=== PATIENT | female | born 1995 | race Two or more races ===

== ENCOUNTER 2023-09-08 12:05 | Outpatient (CLI) | payer OTHER | END 2023-09-08 12:07 | disposition home or self-care (01) | LOC: PRENATAL 12:05 | PROVIDERS: ATTEND Obstetrics & Gynecology Maternal & Fetal Medicine | DX: O36.80X0 Pregnancy with inconclusive fetal viability, not applicable or unspecified (principal); Z36.82 Encounter for antenatal screening for nuchal translucency; O34.40 Maternal care for other abnormalities of cervix, unspecified trimester; Z3A.11 11 weeks gestation of pregnancy ==

== ENCOUNTER 2023-11-09 09:45 | Outpatient (CLI) | payer OTHER | END 2023-11-09 09:48 | disposition home or self-care (01) | LOC: PRENATAL 09:45 | PROVIDERS: ATTEND Obstetrics & Gynecology Maternal & Fetal Medicine | DX: O35.9XX0 Maternal care for (suspected) fetal abnormality and damage, unspecified, not applicable or unspecified (principal); O35.3XX0 Maternal care for (suspected) damage to fetus from viral disease in mother, not applicable or unspecified; O44.00 Complete placenta previa NOS or without hemorrhage, unspecified trimester; Z3A.20 20 weeks gestation of pregnancy ==

== ENCOUNTER 2024-01-31 09:05 | Outpatient (CLI) | payer OTHER | END 2024-01-31 09:06 | disposition home or self-care (01) | LOC: PRENATAL 09:05 | PROVIDERS: ATTEND Obstetrics & Gynecology Maternal & Fetal Medicine | DX: O26.849 Uterine size-date discrepancy, unspecified trimester (principal); O36.8199 Decreased fetal movements, unspecified trimester, other fetus; Z3A.32 32 weeks gestation of pregnancy ==

== ENCOUNTER 2024-03-17 14:46 | Inpatient (IN) | payer OTHER ==
[~2024-03-17] VITALS: Ht 157.5 cm; Wt 74.8 kg
[2024-03-23] MEDS ORDERED: RINGERS SOLUTION,LACTATED 1,000 ML IV SCH (05:15)
[2024-03-23] MEDS ORDERED: PRENATABS RX T1 EACH PO (05:19)
[2024-03-23 06:17] LABS: HEMATOCRIT 37.1 % (36.0-45.00); HEMOGLOBIN 12.9 g/dL (12.0-15.00); MEAN CELL VOLUME 91.9 fL (80.00-100.00); MEAN CORPUSCULAR HEMOGLOBIN 32.1 pg (27.00-32.0); MEAN CORPUSCULAR HGB CONC 34.9 g/dl (32.0-36.0); PLATELET COUNT 150 K/uL (150-450); RED BLOOD COUNT 4.04 M/uL (4.00-6.00); RED CELL DISTRIBUTION WIDTH 13.4 % (11.5-14.5)
[2024-03-23 06:43] LABS: INR < 0.93; PARTIAL THROMBOPLASTIN TIME 25.4 SECONDS (22.0-34.0); PROTHROMBIN TIME 9.7 SECONDS (9.0-11.5)
[2024-03-23 06:50] LABS: CALCIUM 8.8 mg/dL (8.5-10.1); CREATININE SERUM 0.64 mg/dL (0.55-1.02); GFR 108.96; POTASSIUM 3.93 mEq/L (3.5-5.1)
[2024-03-23] MEDS ORDERED: MISOPROSTOL 25 MCG/4 ML GEL.W.APPL VAG SCH (08:30)
[2024-03-23] MEDS ORDERED: OXYTOCIN 20 UNITS/500ML RL PIGGYBAG IV ONE (13:19)
[2024-03-23] MEDS ORDERED: OXYTOCIN 500 ML IV ONE (13:45)
[2024-03-23] MEDS ORDERED: PROMETHAZINE HCL 25 MG/ML AMPUL ONE (16:55)
[2024-03-23] MEDS ORDERED: MEPERIDINE HCL/PF 25 MG/ML VIAL IV ONE (17:15)
[2024-03-23] MEDS ORDERED: PROMETHAZINE HCL 25 MG/ML AMPUL IV ONE (17:30)
[2024-03-23] MEDS ORDERED: ERYTHROMYCIN BASE 1 GM TUBE OP ONE (18:22)
[2024-03-23] MEDS ORDERED: LIDOCAINE HCL 1% 10ML VIAL ONE (18:23)
[2024-03-23] MEDS ORDERED: CHLORHEXIDINE GLUCONATE 120 ML BOTTLE TOP ONE (18:23)
[2024-03-23] MEDS ORDERED: OXYTOCIN 20 UNITS/1000ML RL PIGGYBAG IV ONE (18:23)
[2024-03-23] MEDS ORDERED: DOCUSATE SODIUM 100MG CAP PO SCH (19:36)
[2024-03-23] MEDS ORDERED: CHLORHEXIDINE GLUCONATE 120 ML BOTTLE TP SCH (19:45)
[2024-03-23] MEDS ORDERED: ERYTHROMYCIN BASE 1 GM TUBE OP SCH (19:45)
[2024-03-23] MEDS ORDERED: OXYTOCIN 1,000 ML IV SCH (22:45)
[2024-03-24] MEDS ORDERED: IBUprofen 800 MG TABLET PO SCH (09:00)
[2024-03-24 09:35] LABS: HEMATOCRIT 36.5 % (36.0-45.00); HEMOGLOBIN 12.3 g/dL (12.0-15.00); MEAN CELL VOLUME 92.6 fL (80.00-100.00); MEAN CORPUSCULAR HEMOGLOBIN 31.2 pg (27.00-32.0); MEAN CORPUSCULAR HGB CONC 33.7 g/dl (32.0-36.0); PLATELET COUNT 159 K/uL (150-450); RED BLOOD COUNT 3.95 M/uL (4.00-6.00); RED CELL DISTRIBUTION WIDTH 13.6 % (11.5-14.5)
== END 2024-03-25 12:58 | disposition home or self-care (01) | DRG 807 ==
LOC: OB/GYN 14:46 → LDR 03-23 04:59 → OB/GYN 03-23 22:54
PROVIDERS: ADMIT Obstetrics & Gynecology; ATTEND Obstetrics & Gynecology
PROC: 10E0XZZ Delivery of Products of Conception, External Approach (ICD-10-PCS; principal; 2024-03-23)
PROC: 0UQG7ZZ Repair Vagina, Via Natural or Artificial Opening (ICD-10-PCS; 2024-03-23)
PROC: 3E033VJ Introduction of Other Hormone into Peripheral Vein, Percutaneous Approach (ICD-10-PCS; 2024-03-23)
PROC: 3E0P7VZ Introduction of Hormone into Female Reproductive, Via Natural or Artificial Opening (ICD-10-PCS; 2024-03-23)
PROC: 4A1HXCZ Monitoring of Products of Conception, Cardiac Rate, External Approach (ICD-10-PCS; 2024-03-23)
DX: O71.4 Obstetric high vaginal laceration alone (principal); Z37.0 Single live birth; Z3A.39 39 weeks gestation of pregnancy; Z20.822 Contact with and (suspected) exposure to COVID-19